=== PATIENT | male | born 1930 | race Caucasian/White ===

== ENCOUNTER 2018-05-10 13:28 | Inpatient (IN) | payer OTHER ==
[~2018-05-10] VITALS: Ht 182.9 cm; Wt 90.7 kg
--- NOTE | ~2018-05-10 | HC ---
[facility] [place] [address] CONSULTATION Name: KOKI BENITES Room #: 350-P ADM IN M.R.#: [id number] Admission: 05/10/18 Attend Phys: Ella Bethea MD Discharge: Date of : [birth year] Report #: [id number] THIS REPORT FOR: //name// CC: Ella Bethea DATE OF SERVICE: 05/12/2018 TYPE OF REPORT: Infectious disease consultation. ATTENDING PHYSICIAN: Ella Bethea M.D. REASON FOR CONSULTATION: Streptococcus bacteremia. HISTORY OF PRESENT ILLNESS: The patient is an 87-year-old white man, resident of [facility] where he is found to be unarousable and febrile. He is started on vancomycin and Zosyn. Blood cultures today revealed Streptococcus species. ID opinion is requested. The patient is mumbling unrecognizable words and obviously, he is not able to provide any information whatsoever. All information on this patient is gathered from the review of records. PAST MEDICAL HISTORY: 1. Schizophrenia. 2. Depression. 3. Cardiac arrhythmias. 4. Hypothyroidism. 5. Cataract surgery. 6. Dementia. 7. Depression. 8. CVA. DRUG ALLERGIES: None listed. MEDICATIONS: The patient is on vancomycin 1 gram IV every 12 hours, Zosyn 3.375 grams IV every 8 hours, also receiving treatment with multivitamin with iron, aspirin, loratadine, levothyroxine, risperidone, lactobacillus, acidophilus, senna, docusate tablets, famotidine, metoprolol, albuterol inhalation treatments, normal saline 1000 mL per hour and enoxaparin subcutaneously. SOCIAL HISTORY: Unable to obtain. FAMILY HISTORY: Unable to obtain. REVIEW OF SYSTEMS: Unable to obtain. PHYSICAL EXAMINATION: [facility] [address] [place] [address] CONSULTATION Name: DELMISKOKI Alfreda Room #: 350-P [facility] IN .R.#: [id number] Admission: 05/10/18 Attend Phys: Ella Bethea MD Discharge: Date of : 11/19/[birth year] Report #: [id number] GENERAL: Elderly white man, chronically ill appearing. VITAL SIGNS: Temperature 104.5 on admission and currently temperature is 99.6, temperature maximum last 24 hours 101.1, pulse 65, respirations 20, BP 150/75, height 6 feet and weight 200 pounds. HEENMT: Pupils small and reactive. Mouth, awful oral hygiene dentition. NECK: Supple. LUNGS: Few basilar crackles. HEART: S1 and S2. ABDOMEN: Soft. No masses or megaly. GENITALIA AND RECTAL: Deferred. The patient is wearing a towel on the genitalia and incontinent of urine. EXTREMITIES: Flexor contracture in right upper extremity. No evidence of cellulitis of legs. NEUROLOGICAL: Unable to evaluate. LABORATORY DATA: Sodium 143, potassium 3.5, BUN 30 and creatinine 0.8. Albumin 2.2 g/dL on admission. White blood cell count on admission 18,900; hemoglobin 11.8 g/dL and platelets 206,000. The white blood cell count differential revealed 85% segmented neutrophils. Repeat CBC today revealed a white blood cell count has come down to 11,100; hemoglobin dropped 10.3 g/dL after hydration and platelet count 170,000. Vancomycin trough was 17 mg/dL today. The urinalysis revealed 2+ protein, 1+ ketones and 3+ blood. Microscopic exam revealed some hematuria and bacteriuria. MICROBIOLOGY DATA: Urine culture obtained, results pending. Nasopharyngeal smear negative for rapid influenza A and B. Blood cultures x 2 obtained at the same time, 1445 hours, positive with Streptococcus species; identification and sensitivities are pending. RADIOLOGY EVALUATION: A chest x-ray revealed some cardiomegaly and bibasilar changes. CT scan of the head revealed a small subacute and chronic left convexity, subdural hematoma measuring 5 mm in thickness. 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 ASSESSMENT: 1. Streptococcus species bacteremia, possibly of genitourinary tract origin. 2. Cerebral atrophy, microvascular disease and right previous subdural hematoma. 3. Dementia. 4. Anemia of chronic disease. 5. Hypoalbuminemia. 6. Leukocytosis, improved. SUGGESTIONS: Recommend for time being until identification and sensitivity of isolated organism in the blood is provided to us, we will continue with [address] [address] CONSULTATION Name: BENITESKOKI E Room #: 350-P ADM IN M.R.#: [id number] Admission: 05/10/18 Attend Phys: Ella Bethea MD Discharge: Date of : 11/19/[birth year] Report #: [id number] combination of vancomycin and Zosyn. Suspect we are not dealing with MRSA, then possibly we can discontinue vancomycin shortly. Dr. Bethea, thank you for requesting my suggestions. <ELECTRONICALLY SIGNED> By: Tong Skinner MD 05/13/18 1005 [id number] Tong Skinner MD /nt
--- NOTE | ~2018-05-10 | EKG ---
[place] [address] [place] [address] ELECTROCARDIOGRAM REPORT Name: KOKI BENITES Alfreda Room #: [facility] ARE[facility]#: [id number] Admission: 05/10/18 Attend Phys: Discharge: Date of : 11/19/[birth year] Report #: [id number] THIS REPORT FOR: //name// [facility] ED Test Date: 2018-05-10 Test Time: 14:05:46 Pat Name: KOKI BENITES Department: Room: Gender: Search Engine Optimization Specialist: as : 1930 Requested By: Donita Araiza Order Number: [id number] MD: Jhony Skinner Measurements Intervals [place] Rate: 90 P: 31 NV: 176 QRS: -7 QRSD: 87 T: 42 QT: 355 QTc: 435 Interpretive Statements Sinus rhythm Supraventricular bigeminy Probable left atrial enlargement Probable left ventricular hypertrophy Compared to ECG 10/10/2007 20:40:16 Atrial premature complex(es) now present Electronically Signed On 05-10-2018 16:32:27 CDT by Jhony Skinner [email or web address] <ELECTRONICALLY SIGNED> By: Jhony Skinner MD 05/10/18 1632 1405 140 Jhony Skinner MD /[email or web address]
[~2018-05-10 13:28] MED LIST: AMOXICILLIN 50500 MG PO; ASPIRIN81 M2; DEMADEX20 MG; DEPAKOTE125 MG PO; HYDRALAZINE 2525 M1 PO; IMDUR 30 MG TAB30 M1 PO; KEFLEX500 MG PO; LEVOTHYROXINE0.05 MG PO; LISINOPRIL40 MG PO; MAPAP325 MG/10. PO; MOM; NORCO 5-325 TA1 EACH; PROBIOTIC1 EAC1 PO; PROTONIX40 M2; RISPERDAL 3 MG T3 M1 PO; SPIRONOLACTONE25 M1 PO
[2018-05-10 13:35] VITALS: BP 145/74
[2018-05-10 13:53] LABS: HEMATOCRIT 36.2 % (42.0-52.0); HEMOGLOBIN 11.8 gm/dL (14.0-18.0); MCH 25.2 pg (26.0-34.0); MCHC 32.6 g/dL (28.0-37.0); MCV 77.2 fL (80.0-100.0); PLATELET COUNT 206 thou/uL (150-400); RDW 17.2 % (10.5-14.5); WBC 18.9 thou/uL (4.0-11.0)
[2018-05-10 14:03] LABS: URINE BLOOD 3+ (Negative); URINE CLARITY CLEAR; URINE GLUCOSE-RANDOM* NEGATIVE (Negative); URINE KETONES 1+ (Negative); URINE LEUKOCYTES TRACE (Negative); URINE NITRITE NEGATIVE (Negative); URINE PROTEIN (DIPSTICK) 2+ (Negative); URINE SPECIFIC GRAVITY >= 1.030 (1.005-1.035)
[2018-05-10 14:03] LABS: CALCIUM 9.5 mg/dL (8.5-10.1); CREATININE 1.2 mg/dL (0.7-1.3); POTASSIUM 3.2 mmol/L (3.5-5.1)
[2018-05-10 14:08] LABS: ALBUMIN 2.2 g/dL (3.4-5.0); TOTAL BILIRUBIN 0.5 mg/dL (<0.1-1.0); TOTAL PROTEIN 9.2 g/dL (6.4-8.2)
[2018-05-10 14:09] LABS: ICTOTEST (BILI CONFIRMATORY) Negative (Negative); URINE BILIRUBIN NEGATIVE (Negative); URINE COLOR STRAW
[2018-05-10 14:10] LABS: CASTS None Seen /LPF (None Seen); CRYSTALS None Seen /LPF (None Seen); SQUAMOUS None Seen /LPF (0-3)
[2018-05-10 14:11] LABS: BACTERIA 1-9 Few /HPF (None Seen); URINE RBC 3-10 Few /HPF (0-2); URINE WBC 0-5 Rare /HPF (0-5)
[2018-05-10 14:39] LABS: ABSOLUTE NEUTROPHILS 17.8 thou/uL (1.4-8.2)
[2018-05-10 14:40] LABS: HYPOCHROMASIA 2+; MICROCYTES 2+
[2018-05-10] MEDS ORDERED: ASPIR 8181 MG PO (15:04)
[2018-05-10] MEDS ORDERED: DEPAKOTE ER500 MG PO (15:05)
[2018-05-10] MEDS ORDERED: CLARITIN10 MG PO ×2 (15:05→15:57)
[2018-05-10] MEDS ORDERED: MULTIVITAMINS1 EAC5 PO (15:06)
[2018-05-10] MEDS ORDERED: RANITIDINE HCL75 MG PO (15:07)
[2018-05-10] MEDS ORDERED: WELLBUTRIN 75 M75 M1 PO (15:08)
[2018-05-10] MEDS ORDERED: MUCUS RELIEF400 MG PO (15:08)
[2018-05-10] MEDS ORDERED: RISPERDAL0.5 MG PO (15:09)
[2018-05-10] MEDS ORDERED: DEPAKOTE 250MG250 M1 PO (15:09)
[2018-05-10 15:39] VITALS: BP 157/80
[2018-05-10] MEDS ORDERED: MILK OF MA400 MG/5 M PO (15:50)
[2018-05-10] MEDS ORDERED: SENEXON-S TABL1 EACH PO (15:51)
[2018-05-10] MEDS ORDERED: SYNTHROID112 MC1 PO (15:53)
[2018-05-10] MEDS ORDERED: TYLENOL325 MG PO (15:53)
[2018-05-10] MEDS ORDERED: SELSUN BLUE207 M2 TOP (15:55)
[2018-05-10] MEDS ORDERED: ALLFEN400 MG PO (15:56)
[2018-05-10 16:50] VITALS: BP 128/53
[2018-05-10 17:10] VITALS: BP 134/68
[2018-05-10 19:07] VITALS: BP 156/69
[2018-05-11 00:08] VITALS: BP 109/55
[2018-05-11 04:35] VITALS: BP 115/53
[2018-05-11 08:35] VITALS: BP 133/66
[2018-05-11 16:27] VITALS: BP 141/61
[2018-05-11 19:46] VITALS: BP 142/63
[2018-05-12 03:58] VITALS: BP 144/80
[2018-05-12 04:02] LABS: HEMATOCRIT 32.4 % (42.0-52.0); HEMOGLOBIN 10.3 gm/dL (14.0-18.0); MCH 25.2 pg (26.0-34.0); MCHC 31.9 g/dL (28.0-37.0); MCV 78.9 fL (80.0-100.0); RBC 4.1 mil/uL (4.50-6.00); RDW 17.6 % (10.5-14.5); WBC 11.1 thou/uL (4.0-11.0)
[2018-05-12 04:14] LABS: CREATININE 0.8 mg/dL (0.7-1.3); POTASSIUM 3.5 mmol/L (3.5-5.1)
[2018-05-12 07:17] VITALS: BP 150/75
[2018-05-12 11:07] VITALS: BP 140/84
[2018-05-12 16:13] VITALS: BP 153/71
[2018-05-12 19:05] VITALS: BP 147/66
[2018-05-13 04:53] LABS: % SATURATION 18 % (20-39); IRON 26 ug/dL (65-175); TIBC 146 ug/dL (250-450)
[2018-05-13 05:08] VITALS: BP 180/95
[2018-05-13 07:21] VITALS: BP 163/74
[2018-05-13 11:45] VITALS: BP 169/76
[2018-05-13 16:18] VITALS: BP 161/68
[2018-05-13 18:59] VITALS: BP 156/68
[2018-05-14] VITALS (10 sets, daily range): BP systolic 131–174; BP diastolic 64–95
[2018-05-14 05:53] LABS: HEMATOCRIT 31.7 % (42.0-52.0); HEMOGLOBIN 10.2 gm/dL (14.0-18.0); MCH 25.2 pg (26.0-34.0); MCHC 32.1 g/dL (28.0-37.0); MCV 78.3 fL (80.0-100.0); RBC 4.05 mil/uL (4.50-6.00); RDW 17.8 % (10.5-14.5); WBC 11.3 thou/uL (4.0-11.0)
[2018-05-14 06:05] LABS: CREATININE 0.7 mg/dL (0.7-1.3); POTASSIUM 3.3 mmol/L (3.5-5.1)
[2018-05-14 07:05] LABS: CALCIUM 8.8 mg/dL (8.5-10.1)
[2018-05-14] MEDS ORDERED: MORPHINE S100 MG/5 M SUBLING (20:10)
[2018-05-15 03:55] VITALS: BP 194/89
[2018-05-15 07:05] VITALS: BP 183/87
== END 2018-05-15 12:23 | DRG 871 ==
LOC: ER 13:28 → 3W 16:52
PROVIDERS: Internal Medicine; Nurse Practitioner; Physician Assistant
DX: A41.9 Sepsis, unspecified organism (principal); G92 Toxic encephalopathy; E46 Unspecified protein-calorie malnutrition; N39.0 Urinary tract infection, site not specified; I47.1 Supraventricular tachycardia; F32.9 Major depressive disorder, single episode, unspecified; M19.90 Unspecified osteoarthritis, unspecified site; G30.9 Alzheimer's disease, unspecified; F02.80 Dementia in other diseases classified elsewhere, unspecified severity, without behavioral disturbance, psychotic disturbance, mood disturbance, and anxiety; K59.00 Constipation, unspecified; E03.9 Hypothyroidism, unspecified; G31.9 Degenerative disease of nervous system, unspecified; E88.09 Other disorders of plasma-protein metabolism, not elsewhere classified; D72.829 Elevated white blood cell count, unspecified; D63.8 Anemia in other chronic diseases classified elsewhere; E86.9 Volume depletion, unspecified; F20.9 Schizophrenia, unspecified; R13.13 Dysphagia, pharyngeal phase; B96.20 Unspecified Escherichia coli [E. coli] as the cause of diseases classified elsewhere; E87.6 Hypokalemia; K21.9 Gastro-esophageal reflux disease without esophagitis; Z79.82 Long term (current) use of aspirin; Z79.899 Other long term (current) drug therapy; Z86.711 Personal history of pulmonary embolism; Z68.27 Body mass index [BMI] 27.0-27.9, adult; Z98.41 Cataract extraction status, right eye; Z86.73 Personal history of transient ischemic attack (TIA), and cerebral infarction without residual deficits
CPT/HCPCS: 10879